=== PATIENT | female | born 1960 | race Caucasian/White ===

== ENCOUNTER → 2020-11-20 | Outpatient (CLI) | payer BC ==
[2020-11-20 08:48] LABS: HEMOGLOBIN 14.4 gm/dl (12.3-15.3); RED BLOOD COUNT 4.57 M/UL (4.00-5.10)
[2020-11-20 09:04] LABS: BUN/CREATININE RATIO 21 (0-10)
== END ==
LOC: LAB 08:08
PROVIDERS: Family Medicine
DX: Z51.81 Encounter for therapeutic drug level monitoring (principal); Z79.899 Other long term (current) drug therapy
CPT/HCPCS: 36415; 80053; 80061; 82607; 83690; 84443; 85025

== ENCOUNTER → 2021-02-06 | Outpatient (CLI) | payer OTHER | LOC: RAD 12:17 | DX: M79.602 Pain in left arm (principal); W19.XXXA Unspecified fall, initial encounter | CPT/HCPCS: 73030; 73060; 73080; 73090; 73110 ==

== ENCOUNTER → 2021-05-07 | Outpatient (CLI) | payer BC | LOC: RAD 09:51 | DX: J40 Bronchitis, not specified as acute or chronic (principal); R91.1 Solitary pulmonary nodule | CPT/HCPCS: 71046 ==

== ENCOUNTER → 2021-06-18 | Outpatient (CLI) | payer BC | LOC: CT 07:12 | DX: R91.1 Solitary pulmonary nodule (principal) | CPT/HCPCS: 71250 ==

== ENCOUNTER → 2021-07-11 | Outpatient (CLI) | payer BC | LOC: RAD 07:53 | DX: R06.02 Shortness of breath (principal) | CPT/HCPCS: 71046 ==

== ENCOUNTER → 2021-09-16 | Outpatient (CLI) | payer BC | LOC: EXRD 09:11 → HEART 5 09:11 | DX: J44.9 Chronic obstructive pulmonary disease, unspecified (principal) | CPT/HCPCS: 94060; 94729 ==